=== PATIENT | male | born 1970 | race American Indian/Alaskan Native ===

== ENCOUNTER 2019-02-12 10:48 | Emergency (ER) | payer MEDICAID ==
[2019-02-12 11:04] VITALS: BMI 29.6
[2019-02-12 11:10] VITALS: RESP 18; TEMP 98.2; O2SAT 98
[2019-02-12] MEDS ORDERED: Sodium Chloride 0.9% 1,000 ML IV STA (12:21)
--- NOTE | 2019-02-12 12:32 | ED PDOC ---
Arrival/HPI - General Chief Complaint: Dizziness/Lightheaded Time Seen by Provider: 02/12/19 12:05 Historian: Patient - History of Present Illness Narrative History of Present Illness (Text): 02/12/19 12:28 48 y/o M with PMH of hypertension and anxiety presents to the ED complaining of dizziness since this morning. Patient reports that he smoked marijuana last night and ate a chocolate chip cookie. He woke up this morning feeling dizzy and immediately called his girl friend to call EMS. Patient also complains of dry mouth. Patient denies any fevers, chills, headache, chest pain, shortness of breath, dyspnea on exertion, cough, diaphoresis, abdominal pain, nausea, vomiting, diarrhea, or any other complaint. Time/Duration: 1-3 hours Symptom Onset: Sudden Symptom Course: Unchanged Activities at Onset: Light Context: Home Past Medical History - Provider Review Nursing Documentation Reviewed: Yes - Cardiac Hx Hypertension: Yes - Pulmonary Hx Respiratory Disorders: No - HEENT Hx HEENT Disorder: No - Renal Hx Renal Disorder: No - Endocrine/Metabolic Hx Endocrine Disorders: No - Hematological/Oncological Hx Blood Disorders: No - Integumentary Hx Dermatological Disorder: No - Musculoskeletal/Rheumatological Hx Musculoskeletal Disorders: No - Psychiatric Hx Anxiety: Yes Hx Substance Use: Yes - Anesthesia Hx Anesthesia: Yes Family/Social History - Physician Review Nursing Documentation Reviewed: Yes Family/Social History: Unknown Family HX Smoking Status: marijuana Hx Alcohol Use: Yes Frequency of alcohol use: Socially Hx Substance Use: Yes Substance used: marijuana Allergies/Home Meds Allergies/Adverse Reactions: Allergies No Known Allergies Allergy (Verified 02/12/19 11:02) Review of Systems - Physician Review All systems were reviewed & negative as marked: Yes - Review of Systems Constitutional: Normal Eyes: Normal ENT: Other (dry mouth) Respiratory: Normal Cardiovascular: Normal Gastrointestinal: Normal Genitourinary Male: Normal Musculoskeletal: Normal Skin: Normal Neurological: Dizziness Endocrine: Normal Hemo/Lymphatic: Normal Psychiatric: Normal Physical Exam Vital Signs Reviewed: Yes Vital Signs Temp Pulse Resp BP Pulse Ox 02/12/19 10:48 98.2 F 80 18 148/93 H 98 Temperature: Afebrile Blood Pressure: Normal Pulse: Regular Respiratory Rate: Normal Appearance: Positive for: Well-Appearing, Non-Toxic, Comfortable Pain Distress: None Mental Status: Positive for: Alert and Oriented X 3 - Systems Exam Head: Present: Atraumatic, Normocephalic Pupils: Present: PERRL Extroacular Muscles: Present: EOMI Conjunctiva: Present: Normal Mouth: Present: Dry Neck: Present: Normal Range of Motion Respiratory/Chest: Present: Clear to Auscultation, Good Air Exchange. No: Respiratory Distress, Accessory Muscle Use Cardiovascular: Present: Regular Rate and Rhythm, Normal S1, S2. No: Murmurs Abdomen: No: Tenderness, Distention, Peritoneal Signs Back: Present: Normal Inspection Upper Extremity: Present: Normal Inspection. No: Cyanosis, Edema Lower Extremity: Present: Normal Inspection. No: Edema Neurological: Present: GCS=15, Speech Normal Skin: Present: Warm, Dry, Normal Color. No: Rashes Psychiatric: Present: Alert, Oriented x 3, Normal Insight, Normal Concentration Medical Decision Making ED Course and Treatment: 02/12/19 12:33 Impression: 48 y/o M presents complaining of dizziness since this morning Differential Diagnosis included but are not limited to: -- Dizziness due to substance abuse Plan: -- Head Ct w/o contrast -- Labs -- CXR -- Antivert --Saline IV .9% -- Reassess and disposition Prior Visits: Notes and results from previous visits were reviewed. Progress Notes: - RAD Interpretation Narrative RAD Interpretations (Text): 02/12/19 12:[address] -- No acute intracranial findings Chest X-Ray -- No active disease Radiology Orders: 02/12/19 12:18 HEAD W/O CONTRAST [CT] Stat CXR [CHEST ONE VIEW] [RAD] Stat Healthcare Representative: Radiologist - Medication Orders Current Medication Orders: Sodium Chloride (Sodium Chloride 0.9%) 1,000 mls @ 999 mls/hr IV .Q1H1M STA Stop: 02/12/19 13:21 Discontinued Medications Meclizine HCl (Antivert) 25 mg PO STAT STA Stop: 02/12/19 12:22 - Scribe Statement The provider has reviewed the documentation as recorded by the Narinder Rojo All medical record entries made by the Scribe were at my direction and personally dictated by me. I have reviewed the chart and agree that the record accurately reflects my personal performance of the history, physical exam, medical decision making, and the department course for this patient. I have also personally directed, reviewed, and agree with the discharge instructions and disposition. Disposition/Present on Arrival - Present on Arrival Any Indicators Present on Arrival: No History of DVT/PE: No History of Uncontrolled Diabetes: No Urinary Catheter: No History of Decub. Ulcer: No History Surgical Site Infection Following: None - Disposition Have Diagnosis and Disposition been Completed?: Yes Diagnosis: Dizziness Disposition: HOME/ ROUTINE Disposition Time: 16:15 Patient Plan: Discharge Condition: GOOD Discharge Instructions (ExitCare): Dizziness, Nonvertigo, (DC) Additional Instructions: Follow up with your pcp and take meclizine as directed. Prescriptions: Meclizine [Antivert] 25 mg PO Q8 15 Days #30 tab Referrals: [facility] at [facility] [place] [Outside] - Follow up with primary [facility] at [facility] [Outside] - Follow up with primary [facility] at [place] [Outside] - Follow up with primary Forms: [facility] ([place]), WORK NOTE
[2019-02-12 13:26] LABS: BASO # 0.03 K/mm3 (0.0-2.0); BASO % 0.6 % (0.0-3.0); EOS # 0.1 (0.0-0.7); EOS % 1.9 % (1.5-5.0); HEMOGLOBIN 15.4 g/dL (14.0-18.0); LYMPH # 2.1 (1.2-3.4); LYMPH % 40.5 % (22.0-35.0); MEAN CELL VOLUME 89.7 fl (80.0-105.0); MEAN CORPUSCULAR HEMOGLOBIN 30.4 pg (25.0-35.0); MEAN CORPUSCULAR HGB CONC 33.8 g/dl (31.0-37.0); MEAN PLATELET VOLUME 10.8 fl (7.0-11.0); MONO # 0.3 (0.1-0.6); MONO % 5.2 % (1.0-6.0); RBC 5.07 10^6/uL (3.5-6.1); RED CELL DISTRIBUTION WIDTH 12.8 % (11.5-14.5); WHITE BLOOD COUNT 5.2 10^3/uL (4.5-11.0)
--- NOTE | 2019-02-12 13:41 | RAD ---
Date of service: 02/12/2019 PROCEDURE: CHEST RADIOGRAPH, 1 VIEW HISTORY: r/o infiltrate COMPARISON: None available. FINDINGS: LUNGS: Clear. PLEURA: No pneumothorax or pleural fluid seen. CARDIOVASCULAR: No aortic atherosclerotic calcification present. Normal. OSSEOUS STRUCTURES: No significant abnormalities. VISUALIZED UPPER ABDOMEN: Normal. OTHER FINDINGS: None. IMPRESSION: No active disease.
[2019-02-12 13:43] LABS: ALBUMIN 4.1 g/dL (3.0-4.8); ALT/SGPT 15 U/L (7-56); AST/SGOT 31 U/L (17-59); BLOOD UREA NITROGEN 12 mg/dL (7-21); CALCIUM 9.3 mg/dL (8.4-10.5); GFR NON-AFRICAN AMERICAN > 60
[2019-02-12 13:56] LABS: TROPONIN I < 0.01 ng/mL
--- NOTE | 2019-02-12 14:10 | CT ---
Date of service: 02/12/2019 PROCEDURE: CT HEAD WITHOUT CONTRAST. HISTORY: dizziness COMPARISON: None available. TECHNIQUE: Axial computed tomography images were obtained through the head/brain without intravenous contrast. Radiation dose: Total exam DLP = 873.68 mGy-cm. This CT exam was performed using one or more of the following dose reduction techniques: Automated exposure control, adjustment of the mA and/or kV according to patient size, and/or use of iterative reconstruction technique. FINDINGS: HEMORRHAGE: No intracranial hemorrhage. BRAIN: No mass effect or edema. No atrophy or chronic microvascular ischemic changes. VENTRICLES: Unremarkable. No hydrocephalus. CALVARIUM: Unremarkable. PARANASAL SINUSES: Unremarkable as visualized. No significant inflammatory changes. MASTOID AIR CELLS: Unremarkable as visualized. No inflammatory changes. OTHER FINDINGS: None. IMPRESSION: No acute intracranial findings
[2019-02-12 15:55] VITALS: BP 135/69; PULSE 64
--- NOTE | 2019-02-12 16:07 | CARD ---
APPROVED REPORT Date of service: 02/12/2019 EKG Measurement Heart [id number] <Conclusion> Sinus rhythm with 1st degree AV block Nonspecific T wave abnormality
== END 2019-02-12 16:15 | disposition home or self-care (01) ==
LOC: ED 10:48
DX: R42 Dizziness and giddiness (principal); I10 Essential (primary) hypertension; F12.90 Cannabis use, unspecified, uncomplicated
CPT/HCPCS: 70450; 71045; 80053; 84484; 85025; 93005; 96360; 99285; J7030